=== PATIENT | female | born 1980 | race African-American/Black ===

== ENCOUNTER 2018-07-16 20:14 | Emergency (ER) | payer MEDICAID ==
[~2018-07-16] VITALS: Ht 149.9 cm; Wt 52.0 kg
[2018-07-16 21:37] VITALS: BP 112/70
== END 2018-07-16 20:30 | disposition left against medical advice (07) ==
LOC: ER 20:14
DX: M79.641 Pain in right hand (principal); Z53.21 Procedure and treatment not carried out due to patient leaving prior to being seen by health care provider

== ENCOUNTER 2018-07-17 05:44 | Emergency (ER) | payer MEDICAID ==
[~2018-07-17] VITALS: Ht 149.9 cm; Wt 53.0 kg
[2018-07-17] MEDS ORDERED: IBUPROFEN 600MG TABLET PO ONE (07:00)
[2018-07-17 07:07] VITALS: BP 120/65
== END 2018-07-17 09:15 | disposition home or self-care (01) ==
LOC: ER 08:43
DX: M79.671 Pain in right foot (principal); F17.200 Nicotine dependence, unspecified, uncomplicated
CPT/HCPCS: 99282

== ENCOUNTER 2019-03-04 10:10 | Emergency (ER) | payer MEDICAID, OTHER ==
[~2019-03-04] VITALS: Ht 149.9 cm; Wt 55.0 kg
[2019-03-04 11:37] LABS: CLARITY URINE CLOUDY (CLEAR); COLOR URINE YELLOW (YELLOW); KETONES URINE TRACE (NEGATIVE); LEUKOCYTE ESTERASE URINE TRACE (NEGATIVE); NITRITE URINE NEGATIVE (NEGATIVE); OCCULT BLOOD URINE 1+ (NEGATIVE); PH URINE 5.5 (4.5-8.0); PROTEIN URINE NEGATIVE (NEGATIVE); SPECIFIC GRAVITY URINE 1.026 (1.005-1.030)
[2019-03-04 12:48] LABS: BASOPHILS % 0.5 % (0.0-2.0); EOSINOPHILS % 1.8 % (0.0-5.0); HEMOGLOBIN. 13.8 g/dL (12.0-16.0); LYMPHOCYTES % 18.4 % (20.0-50.0); MEAN CORPUSCULAR HEMOGLOBIN 31.6 pg (28.0-32.0); MEAN CORPUSCULAR VOLUME 91.3 fL (81.0-99.0); MEAN PLATELET VOLUME 8.3 fl (7.4-10.4); MONOCYTES % 7.9 % (2.0-8.0); NEUTROPHILS % 71.4 % (40.0-76.0); PLATELET 286 x1000/uL (130-400); RED BLOOD CELL COUNT 4.38 mill/uL (4.2-5.4); RED CELL DISTRIBUTION WIDTH 13.4 % (11.6-14.6)
[2019-03-04 12:56] LABS: CHLORIDE 105 mEq/L (98-107)
[2019-03-04 13:26] LABS: B-HCG QUANTITATIVE 36398 mIU/mL (<3)
[2019-03-04 15:00] VITALS: BP 101/59
== END 2019-03-04 15:00 | disposition home or self-care (01) ==
LOC: ER 10:15
DX: O20.0 Threatened abortion (principal); O23.41 Unspecified infection of urinary tract in pregnancy, first trimester; Z3A.01 Less than 8 weeks gestation of pregnancy; Z98.890 Other specified postprocedural states
CPT/HCPCS: 36415; 76801; 81003; 81025; 84702; 86850; 86900; 99284

== ENCOUNTER 2019-03-06 13:24 | Emergency (ER) | payer OTHER ==
[~2019-03-06] VITALS: Ht 149.9 cm; Wt 62.0 kg
[2019-03-06 15:01] LABS: BASOPHILS % 0.8 % (0.0-2.0); EOSINOPHILS % 1.7 % (0.0-5.0); HEMATOCRIT. 38.2 % (36.0-48.0); HEMOGLOBIN. 12.9 g/dL (12.0-16.0); LYMPHOCYTES % 24.1 % (20.0-50.0); MEAN CORPUSCULAR HEMOGLOBIN 31.2 pg (28.0-32.0); MEAN CORPUSCULAR VOLUME 92.7 fL (81.0-99.0); MEAN PLATELET VOLUME 7.7 fl (7.4-10.4); MONOCYTES % 8.2 % (2.0-8.0); NEUTROPHILS % 65.2 % (40.0-76.0); PLATELET 237 x1000/uL (130-400); RED BLOOD CELL COUNT 4.12 mill/uL (4.2-5.4); RED CELL DISTRIBUTION WIDTH 13.2 % (11.6-14.6)
[2019-03-06 15:04] LABS: CLARITY URINE CLOUDY (CLEAR); COLOR URINE YELLOW (YELLOW); KETONES URINE TRACE (NEGATIVE); LEUKOCYTE ESTERASE URINE TRACE (NEGATIVE); NITRITE URINE NEGATIVE (NEGATIVE); OCCULT BLOOD URINE NEGATIVE (NEGATIVE); PH URINE 5.5 (4.5-8.0); PROTEIN URINE NEGATIVE (NEGATIVE); SPECIFIC GRAVITY URINE 1.024 (1.005-1.030); UROBILINOGEN URINE 0.2 E.U./dL (0.2-1.0)
[2019-03-06 15:07] LABS: CHLORIDE 106 mEq/L (98-107)
[2019-03-06 15:32] LABS: B-HCG QUANTITATIVE 44178 mIU/mL (<3)
[2019-03-06 17:03] VITALS: BP 108/48
== END 2019-03-06 17:04 | disposition home or self-care (01) ==
LOC: ER 13:24
DX: O20.0 Threatened abortion (principal); Z3A.01 Less than 8 weeks gestation of pregnancy
CPT/HCPCS: 36415; 76830; 76856; 81003; 84702; 86850; 86900; 99284

== ENCOUNTER 2019-04-30 10:01 | Emergency (ER) | payer MEDICAID, OTHER ==
[~2019-04-30] VITALS: Ht 152.4 cm; Wt 56.0 kg
[2019-04-30 12:34] VITALS: BP 98/72
[2019-04-30 12:42] LABS: BASOPHILS % 0.4 % (0.0-2.0); EOSINOPHILS % 1.4 % (0.0-5.0); HEMATOCRIT. 36.1 % (36.0-48.0); HEMOGLOBIN. 12.5 g/dL (12.0-16.0); LYMPHOCYTES % 16.7 % (20.0-50.0); MEAN CORPUSCULAR HEMOGLOBIN 31.5 pg (28.0-32.0); MEAN CORPUSCULAR VOLUME 91.2 fL (81.0-99.0); MEAN PLATELET VOLUME 8.3 fl (7.4-10.4); MONOCYTES % 7.7 % (2.0-8.0); NEUTROPHILS % 73.8 % (40.0-76.0); PLATELET 254 x1000/uL (130-400); RED BLOOD CELL COUNT 3.96 mill/uL (4.2-5.4); RED CELL DISTRIBUTION WIDTH 12.8 % (11.6-14.6)
[2019-04-30 12:45] LABS: CHLORIDE 107 mEq/L (98-107)
[2019-04-30 13:08] LABS: B-HCG QUANTITATIVE 64709 mIU/mL (<3)
[2019-04-30 14:28] LABS: CLARITY URINE CLEAR (CLEAR); COLOR URINE YELLOW (YELLOW); KETONES URINE NEGATIVE (NEGATIVE); LEUKOCYTE ESTERASE URINE 1+ (NEGATIVE); NITRITE URINE POSITIVE (NEGATIVE); OCCULT BLOOD URINE NEGATIVE (NEGATIVE); PROTEIN URINE NEGATIVE (NEGATIVE); SPECIFIC GRAVITY URINE 1.018 (1.005-1.030)
== END 2019-04-30 14:58 | disposition home or self-care (01) ==
LOC: ER 11:36
DX: O26.892 Other specified pregnancy related conditions, second trimester (principal); R10.30 Lower abdominal pain, unspecified; Z3A.14 14 weeks gestation of pregnancy; Z98.890 Other specified postprocedural states
CPT/HCPCS: 36415; 76801; 81003; 81025; 84702; 86850; 86900; 99284

== ENCOUNTER 2019-05-18 15:44 | Emergency (ER) | payer MEDICAID, OTHER ==
[~2019-05-18] VITALS: Ht 149.9 cm; Wt 59.0 kg
[2019-05-18 15:57] VITALS: BP 106/53
[2019-05-18] MEDS ORDERED: ACETAMINOPHEN 325MG TABLET PO ONE (17:15)
== END 2019-05-18 17:56 | disposition left against medical advice (07) ==
LOC: ER 15:44
DX: R51 Headache (principal)
CPT/HCPCS: 99282

== ENCOUNTER 2019-08-08 14:50 | Observation (INO) | payer OTHER ==
[~2019-08-08] VITALS: Ht 149.9 cm; Wt 62.6 kg
[2019-08-08 15:38] LABS: CLARITY URINE CLEAR (CLEAR); COLOR URINE YELLOW (YELLOW); KETONES URINE NEGATIVE (NEGATIVE); LEUKOCYTE ESTERASE URINE NEGATIVE (NEGATIVE); NITRITE URINE NEGATIVE (NEGATIVE); OCCULT BLOOD URINE NEGATIVE (NEGATIVE); PH URINE 7.5 (4.5-8.0); PROTEIN URINE NEGATIVE (NEGATIVE); SPECIFIC GRAVITY URINE 1.019 (1.005-1.030)
[2019-08-08] MEDS ORDERED: PREN1TAB78 MT (15:43)
== END 2019-08-08 16:30 | disposition home or self-care (01) ==
LOC: 8 EST LDRP 14:50
PROVIDERS: ADMIT Obstetrics & Gynecology; ATTEND Obstetrics & Gynecology
DX: O26.893 Other specified pregnancy related conditions, third trimester (principal); M54.5 Low back pain; R10.9 Unspecified abdominal pain; Z3A.28 28 weeks gestation of pregnancy
CPT/HCPCS: 81003; 99281; G0378

== ENCOUNTER 2019-09-10 15:28 | Emergency (ER) | payer OTHER ==
[~2019-09-10 15:28] MED LIST: PREN1TAB78 MT
== END 2019-09-10 18:06 | disposition left against medical advice (07) ==
LOC: ER 15:28
DX: O99.413 Diseases of the circulatory system complicating pregnancy, third trimester (principal); R07.89 Other chest pain; Z3A.33 33 weeks gestation of pregnancy; Z53.21 Procedure and treatment not carried out due to patient leaving prior to being seen by health care provider

== ENCOUNTER 2019-09-12 08:21 | Observation (INO) | payer OTHER ==
[~2019-09-12] VITALS: Ht 149.9 cm; Wt 64.0 kg
[2019-09-12] MEDS ORDERED: ACETAMINOPHEN 500MG TABLET PO NR (09:45)
[2019-09-12 09:59] LABS: CLARITY URINE CLOUDY (CLEAR); COLOR URINE YELLOW (YELLOW); KETONES URINE NEGATIVE (NEGATIVE); LEUKOCYTE ESTERASE URINE TRACE (NEGATIVE); NITRITE URINE NEGATIVE (NEGATIVE); OCCULT BLOOD URINE NEGATIVE (NEGATIVE); PROTEIN URINE NEGATIVE (NEGATIVE); SPECIFIC GRAVITY URINE 1.017 (1.005-1.030); UROBILINOGEN URINE 0.2 E.U./dL (0.2-1.0)
== END 2019-09-12 11:30 | disposition home or self-care (01) ==
LOC: 8 EST LDRP 08:21
PROVIDERS: ADMIT Obstetrics & Gynecology; ATTEND Obstetrics & Gynecology
DX: O26.893 Other specified pregnancy related conditions, third trimester (principal); R10.9 Unspecified abdominal pain; R51 Headache; Z3A.33 33 weeks gestation of pregnancy
CPT/HCPCS: 81003; 82731; 87086; 99281; G0378

== ENCOUNTER 2019-10-23 07:14 | Inpatient (IN) | payer OTHER ==
[~2019-10-23] VITALS: Ht 149.9 cm; Wt 64.4 kg
[2019-10-23] MEDS ORDERED: LACTATED RINGERS 1,000 ML IV SCH (07:45)
[2019-10-23] MEDS ORDERED: DEXT 5%/LR + PITOCIN 20UNITS/L 1,000 ML IV SCH ×2 (07:45→13:40)
[2019-10-23] MEDS ORDERED: METHYLERGONOVINE MALEATE 0.2 MG/ML IM PRN (07:45)
[2019-10-23] MEDS ORDERED: FENTANYL CITRATE/PF 50MCG/ML 2ML VIAL ONE (07:48)
[2019-10-23] MEDS ORDERED: OXYTOCIN 10 UNITS/ML 1ML ONE (07:49)
[2019-10-23] MEDS ORDERED: MORPHINE SULFATE/PF 1MG/ML 10ML AMP ONE (07:49)
[2019-10-23] MEDS ORDERED: PHENYLEPHRINE HCL 10 MG/ML 1ML (IV VIAL) IV ONE (07:49)
[2019-10-23] MEDS ORDERED: EPHEDRINE SULFATE 50MG/ML VIAL ONE (07:49)
[2019-10-23] MEDS ORDERED: GLYCOPYRROLATE 0.2 MG/ML 2ML VIAL ONE (07:49)
[2019-10-23] MEDS ORDERED: ONDANSETRON HCL 4MG/2ML INJ ONE (07:49)
[2019-10-23] MEDS ORDERED: CITRIC ACID/SODIUM CITRATE SOLN 30ML UDC PO ONE (08:00)
[2019-10-23 08:37] LABS: BASOPHILS % 0.7 % (0.0-2.0); EOSINOPHILS % 0.7 % (0.0-5.0); HEMOGLOBIN. 11.5 g/dL (12.0-16.0); LYMPHOCYTES % 21.6 % (20.0-50.0); MEAN CORPUSCULAR HEMOGLOBIN 27.9 pg (28.0-32.0); MEAN CORPUSCULAR VOLUME 84.9 fL (81.0-99.0); MEAN PLATELET VOLUME 9.2 fl (7.4-10.4); MONOCYTES % 8.7 % (2.0-8.0); NEUTROPHILS % 68.3 % (40.0-76.0); PLATELET 283 x1000/uL (130-400); RED BLOOD CELL COUNT 4.13 mill/uL (4.2-5.4); RED CELL DISTRIBUTION WIDTH 14.8 % (11.6-14.6)
[2019-10-23 08:53] LABS: INR 0.9; PARTIAL THROMBOPLASTIN TIME 26.4 sec (23.4-31.0); PROTHROMBIN TIME 10.1 sec (9.6-11.0)
[2019-10-23] MEDS ORDERED: CEFAZOLIN SODIUM 1000MG/VIAL ONE (09:29)
[2019-10-23] MEDS ORDERED: SODIUM CHLORIDE 0.9% 10ML VIAL ONE (09:32)
[2019-10-23 11:06] LABS: HEPATITIS B SURFACE ANTIGEN NEGATIVE
[2019-10-23] MEDS ORDERED: DIPHENHYDRAMINE 50MG/ML VIAL ONE (12:58)
[2019-10-23] MEDS ORDERED: KETOROLAC 60MG/2ML VIAL IM ONE (12:58)
[2019-10-23] MEDS ORDERED: KETOROLAC 30MG/ML VIAL IV PRN (13:45)
[2019-10-23] MEDS ORDERED: BISACODYL 10MG SUPP PR PRN (13:45)
[2019-10-23] MEDS ORDERED: IBUPROFEN 400MG TABLET PO PRN (13:45)
[2019-10-23] MEDS ORDERED: RHO(D) IMMUNE GLOBULIN 300 MCG/SYR IM PRN (13:45)
[2019-10-23] MEDS ORDERED: DIPHENHYDRAMINE 50MG/ML VIAL IV PRN (14:00)
[2019-10-23] MEDS ORDERED: BUTORPHANOL TARTRATE 2 MG/ML VIAL IV PRN (14:00)
[2019-10-23] MEDS ORDERED: NALOXONE HCL 0.4 MG/ML 1ML VIAL IV PRN (14:00)
[2019-10-23 17:20] VITALS: BP 102/55
[2019-10-23 17:50] VITALS: BP 96/51
[2019-10-23 18:07] LABS: CLARITY URINE CLEAR (CLEAR); COLOR URINE YELLOW (YELLOW); KETONES URINE 1+ (NEGATIVE); LEUKOCYTE ESTERASE URINE 2+ (NEGATIVE); NITRITE URINE NEGATIVE (NEGATIVE); OCCULT BLOOD URINE NEGATIVE (NEGATIVE); PROTEIN URINE NEGATIVE (NEGATIVE); SPECIFIC GRAVITY URINE 1.007 (1.005-1.030); UROBILINOGEN URINE 0.2 E.U./dL (0.2-1.0)
[2019-10-23 18:20] LABS: METHADONE URINE SCREEN NEGATIVE (NEGATIVE)
[2019-10-23 18:21] LABS: *AMPHETAMINES SCREEN URINE NEGATIVE (NEGATIVE); *BARBITURATES SCREEN URINE NEGATIVE (NEGATIVE); *BENZODIAZEPINES SCREEN URINE NEGATIVE (NEGATIVE); *COCAINE SCREEN URINE NEGATIVE (NEGATIVE); CANNABINOID URINE SCREEN NEGATIVE (NEGATIVE); OPIATES URINE SCREEN NEGATIVE (NEGATIVE); PHENCYCLIDINE URINE SCREEN NEGATIVE (NEGATIVE)
[2019-10-23 19:15] VITALS: BP 94/50
[2019-10-24 00:15] VITALS: BP 102/60
[2019-10-24] MEDS: KETOROLAC 30MG/ML VIAL IV SCH ×2 (00:24→05:07)
[2019-10-24 05:00] VITALS: BP 105/65
[2019-10-24 07:28] LABS: BASOPHILS % 0.8 % (0.0-2.0); HEMATOCRIT. 27.5 % (36.0-48.0); HEMOGLOBIN. 9.1 g/dL (12.0-16.0); LYMPHOCYTES % 22.5 % (20.0-50.0); MEAN CORPUSCULAR HEMOGLOBIN 28.1 pg (28.0-32.0); MEAN CORPUSCULAR VOLUME 84.6 fL (81.0-99.0); MEAN PLATELET VOLUME 9.7 fl (7.4-10.4); MONOCYTES % 10.1 % (2.0-8.0); NEUTROPHILS % 65.6 % (40.0-76.0); PLATELET 216 x1000/uL (130-400); RED BLOOD CELL COUNT 3.25 mill/uL (4.2-5.4); RED CELL DISTRIBUTION WIDTH 14.5 % (11.6-14.6)
[2019-10-24 08:00] VITALS: BP 92/55
[2019-10-24 16:00] VITALS: BP 107/65
[2019-10-24] MEDS: IBUPROFEN 800MG TABLET PO PRN (19:49)
[2019-10-24 20:00] VITALS: BP 114/71
[2019-10-24] MEDS ORDERED: OXYCODONE HCL/ACETAMINOPHEN 5/325MG TABLET PO PRN (23:15)
[2019-10-25] VITALS: BP 111/69
[2019-10-25 04:00] VITALS: BP 111/64
[2019-10-25] MEDS: IBUPROFEN 800MG TABLET PO PRN ×2 (04:20→16:31)
[2019-10-25 17:12] VITALS: BP 100/61
[2019-10-25 20:00] VITALS: BP 100/55
[2019-10-26] MEDS: IBUPROFEN 800MG TABLET PO PRN ×2 (02:27→10:26)
[2019-10-26 04:30] VITALS: BP 108/56
[2019-10-26 09:30] VITALS: BP 109/63
== END 2019-10-26 12:15 | disposition home or self-care (01) | DRG 540 ==
LOC: OBSVTOIN 07:14 → 8 EST LDRP 07:14 → 8EST 17:10
PROVIDERS: ATTEND Obstetrics & Gynecology
PROC: 10D00Z1 Extraction of Products of Conception, Low, Open Approach (ICD-10-PCS; principal; 2019-10-23)
PROC: 0UB90ZZ Excision of Uterus, Open Approach (ICD-10-PCS; 2019-10-23)
DX: O34.211 Maternal care for low transverse scar from previous cesarean delivery (principal); K66.0 Peritoneal adhesions (postprocedural) (postinfection); O34.13 Maternal care for benign tumor of corpus uteri, third trimester; Z37.0 Single live birth; Z3A.39 39 weeks gestation of pregnancy
CPT/HCPCS: 36415; 80305; 81003; 85025; 86592; 86703; 86762; 86850; 86900; 86920; 87340; 88307; 99281; J0690; J1200; J1885; J2274; J2370; J2405; J2590; J3010; J3490; J7120